=== PATIENT | female | born 1985 | race African-American/Black ===

== ENCOUNTER 2022-11-15 19:15 | Emergency (ER) | payer OTHER ==
[2022-11-15 19:24] VITALS: BP 149/98; PULSE 89; RESP 20; TEMP 98.5; BMI 49.1
[2022-11-15] MEDS ORDERED: AMOX TR/POT CLAV 875MG/125MG TABLETS (FP) PO ONE (19:45)
[2022-11-15] MEDS ORDERED: AMOX TR/POT CLAV 875MG/125MG TABLETS (FP) ONE (20:05)
== END 2022-11-15 21:37 | disposition home or self-care (01) ==
LOC: JERFT 19:15
DX: S01.85XA Open bite of other part of head, initial encounter (principal); W54.0XXA Bitten by dog, initial encounter
CPT/HCPCS: 99283-25